=== PATIENT | male | born 1980 | race Caucasian/White ===

== ENCOUNTER 2019-02-20 11:59 | Emergency (ER) | payer BC, OTHER ==
--- NOTE | 2019-02-20 12:06 | Emergency Department Record ---
History of Present Illness - General Chief Complaint: Animal Bite Stated Complaint: DOG BITE Time Seen by Provider: 02/20/19 12:02 Source: Patient, Family Mode of Arrival: Ambulatory Limitations: No limitations - History of Present Illness Initial Comments: 38 yo male presents with a dog bite to the arm. This occurred just prior to arrival. The dog is his dog. The dog has not been ill. The patient is unsure of when his last tetanus shot was given. He has some local pain and some altered sensation to the hand. No allergies to antibiotics. Unprovoked. 6 yo pit bull. Complaint: Animal bite -: Minutes(s) Left: Forearm Animal: Dog Description: Appeared well Mechanism: Bite Pain Description: Sharp Context: Other Associated Symptoms: Other (tingling in the hand) Treatments Prior to Arrival: Wound dressing(s) - Related Data Home Medications Medication Instructions Recorded Confirmed Last Taken Gemfibrozil [Lopid] 600 mg PO DAILY 02/20/19 02/20/19 02/20/19 Lisinopril [Prinivil] 10 mg PO DAILY 02/20/19 02/20/19 02/20/19 Pravastatin Sodium [Pravachol] 40 mg PO DAILY 02/20/19 02/20/19 02/20/19 Allergies Allergy/AdvReac Type Severity Reaction Status Date / Time No Known Drug Allergies Allergy Verified 02/20/19 12:03 Review of Systems Constitutional: Denies: Chills, Fever, Malaise, Weakness Eyes: Denies: Eye discharge ENT: Denies: Congestion, Throat pain Respiratory: Denies: Cough, Dyspnea Cardiovascular: Denies: Chest pain, Palpitations, Syncope Endocrine: Denies: Fatigue Gastrointestinal: Denies: Abdominal pain, Diarrhea, Nausea, Vomiting Genitourinary: Denies: Dysuria, Frequency, Hematuria Musculoskeletal: Reports: Arthralgia, Myalgia Skin: Reports: Other (Dog bite) Neurological: Reports: Tingling. Denies: Headache, Weakness Psychiatric: Denies: Anxiety Hematological/Lymphatic: Denies: Easy bleeding, Easy bruising Physical Exam - General General Appearance: Alert, Oriented x3, Cooperative, No acute distress Limitations: No limitations - Head Head exam: Atraumatic, Normal inspection - Eye Eye exam: Normal appearance, PERRL. negative: Conjunctival injection, Scleral icterus - ENT ENT exam: Normal exam, Mucous membranes moist Ear exam: Normal external inspection Nasal Exam: Normal inspection Mouth exam: Normal external inspection - Neck Neck exam: Normal inspection. negative: Tenderness - Respiratory Respiratory exam: Normal lung sounds bilaterally. negative: Respiratory distress - Cardiovascular Cardiovascular Exam: Regular rate, Normal rhythm, Normal heart sounds - Rectal Rectal exam: Deferred - exam: Deferred - Extremities Extremities exam: negative: Normal inspection Image of Hand: 1 - laceration 4cm 2 - laceration 3cm 3 - laceration 3cm 4 - laceration 3.5cm - Back Back exam: Reports: Normal inspection - Neurological Neurological exam: Alert, Motor sensory deficit (subjective numbness around the dorsal distal laceration, sensation is intact to the remaining hand), Normal gait, Oriented X3. negative: Altered - Psychiatric Psychiatric exam: Normal affect, Normal mood. negative: Agitated, Anxious - Skin Skin exam: Other Course - Reevaluation(s) Reevaluation #1: 02/20/19 13:22 The patient was updated on his tetanus He was given Unasyn 3gm IVPB The wounds were initially irrigated copiously with ShurClens then 1500ml NS total The distal dorsal wound may have a partial injury to the tendon that is superficial but no definite injury and no loss in strength The XRay demonstrated no FB, there is air up the forearm about 2/3. The forearm remains soft. He has full child care provider without signs of compartment syndrome 02/20/19 13:28 [facility] transfer line was contact to discuss with the ED/Trauma. 02/20/19 13:43 I SW the ED at [facility] Dr Joseph Kelly. He recommended discussion with trauma prior to accepting. 02/20/19 14:45 Waiting still for call back from Trauma at [facility] at this time (In the OR per [facility]) [facility] contacted again 02/20/19 14:50 Dr Norwood accepts the patient for transfer to the ED 02/20/19 14:51 Disposition Disposition: Transfer Clinical Impression: Dog bite of left wrist Disposition: Acute Care Hospital Transfer Transfer To: [facility] Reason For Transfer: Dog Bite to the forearm Accepting Physician: Dr Norwood Time Discussed w/Accepting Physician: 14:51 Condition: (2) Stable Additional Instructions: Go directly to the [facility] ED Do not eat or drink prior to arrival Forms: Patient Portal Access Time of Disposition: 13:44 Quality - Quality Measures Quality Measures: N/A - Blood Pressure Screening Does Patient Have Any of the Following: No Blood Pressure Classification: Normal BP Reading Systolic Measurement: 115 Diastolic Measurement: 78 Screening for High Blood Pressure: < Normal BP, F/U Not Required > [G8783] Pre-Hypertensive Follow-up Interventions: Referral to alternative/primary care provider.
[2019-02-20] MEDS ORDERED: AMPICILLIN SODIUM/SULBACTAM NA 3 G in 0.9 % SODIUM CHLORIDE 100ML 100 ML IVPB ONE (12:07)
[2019-02-20] MEDS ORDERED: Diph,Pert(Acell),Tet Vac 0.5 ML SYR IM ONE (12:07)
[2019-02-20] MEDS ORDERED: MORPHINE SULFATE 5 MG/ML VIAL IVP ONE (12:07)
--- NOTE | 2019-02-21 08:04 | RADIOLOGY REPORT ---
EXAM: LEFT FOREARM, TWO VIEWS HISTORY: HISTORY OF DOG BITE. TECHNIQUE: Two views of the left forearm are provided without comparison examinations. FINDINGS: There is no radiographic evidence of a fracture or dislocation of the left forearm. There is extensive subcutaneous emphysematous changes identified within the radial and lateral aspect as well as the dorsal and volar aspect of the distal let forearm compatible with the patient's clinical history of dog bit. Puncture wounds are identified both dorsally and in the volar aspect. No radiopaque foreign bodies are identified. 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 IMPRESSION: SUBCUTANEOUS EMPHYSEMATOUS CHANGES AND PUNCTURE WOUNDS ARE IDENTIFIED WITHIN THE SOFT TISSUE OF THE DISTAL LEFT FOREARM DESCRIBED. NO RADIOPAQUE FOREIGN BODIES ARE IDENTIFIED. THESE FINDINGS ARE COMPATIBLE WITH THE PATIENT'S CLINICAL HISTORY OF DOG BITE. JOB NUMBER: [id number] MTDD
== END 2019-02-20 15:25 | disposition short-term general hospital (02) ==
LOC: ER 11:59
DX: S61.552A Open bite of left wrist, initial encounter (principal); S51.852A Open bite of left forearm, initial encounter; R20.2 Paresthesia of skin; W54.0XXA Bitten by dog, initial encounter; Y92.009 Unspecified place in unspecified non-institutional (private) residence as the place of occurrence of the external cause
CPT/HCPCS: 90715; 96365; 96372; 96375; 99285; J0295